=== PATIENT | male | born 1985 | race Caucasian/White ===

== ENCOUNTER 2019-03-18 02:38 | Emergency (ER) | payer OTHER ==
[~2019-03-18] VITALS: Ht 170.2 cm; Wt 68.0 kg
[2019-03-18] MEDS ORDERED: CARISOPRODOL 350MG TABLETS (02:50)
[2019-03-18] MEDS ORDERED: TRAMADOL 50MG TABLETS (02:50)
[2019-03-18] MEDS ORDERED: QUETIAPINE 25 MG (02:50)
[2019-03-18] MEDS ORDERED: ACETAMINOPHEN/CODEINE TABLET (02:50)
[2019-03-18] MEDS ORDERED: [UNRECOGNIZED DRUG - OTHER] (02:50)
[2019-03-18] MEDS ORDERED: ESCITALOPRAM 10MG TABLETS (02:50)
[2019-03-18] MEDS ORDERED: OXYCODONE/APAP 5-325 MG TABLET ONE ×2 (03:06→04:27)
--- NOTE | 2019-03-18 03:10 | NUR ---
Pt here for c/o chronic abd pain, state he has Hx of 3 abd hernias. State he had a mesh placed in abd but he believes he injuried himself in a fall causing severe pain hernia to pertrude. Percocet 5mg tabs x2 given, waiting for x-ray for abd series. Vs 82, 18, 98% on ra, 122/83.
[2019-03-18 03:12] LABS: EOSINOPHILS # (AUTO) 0.1 K/uL (0.0-0.7); EOSINOPHILS % (AUTO) 1.9 % (0.0-7.0); HEMATOCRIT 39.7 % (36.7-47.1); HEMOGLOBIN 14.1 g/dL (12.5-16.3); LYMPHOCYTES # (AUTO) 1.7 K/uL (20.0-40.0); LYMPHOCYTES % (AUTO) 34.6 % (20.5-51.5); MEAN CORPUSCULAR HEMOGLOBIN 31.7 uug (23.8-33.4); MEAN CORPUSCULAR HGB CONC 36 g/dL (32.5-36.3); MONOCYTES # (AUTO) 0.3 K/uL (2.0-10.0); MONOCYTES % (AUTO) 7.1 % (0.0-11.0); NEUTROPHILS # (AUTO) 2.7 K/uL (1.8-8.9); NEUTROPHILS % (AUTO) 55.4 % (38.5-71.5); PLATELET COUNT (AUTO) 218 K/uL (152-348); RED BLOOD CELL COUNT(AUTO) 4.46 MIL/uL (4.06-5.63); WHITE BLOOD COUNT (AUTO) 4.9 K/uL (3.6-10.2)
[2019-03-18] MEDS ORDERED: OXYCODONE/APAP 5-325 MG TABLET PO ONE ×2 (03:15→04:30)
[2019-03-18 03:24] LABS: BILIRUBIN,DIRECT 0.3 mg/dL (0.0-0.2); BILIRUBIN,TOTAL 1.9 mg/dL (0.2-1.0); CREATININE 1.1 mg/dL (0.6-1.3); POTASSIUM 3.7 mmol/L (3.5-5.1); TOTAL PROTEIN, SERUM 6.9 g/dL (6.4-8.2)
--- NOTE | 2019-03-18 03:29 | NUR ---
X-ray done waiting for MD.
--- NOTE | 2019-03-18 04:15 | NUR ---
Abd series complete, MD talking w/ pt at this time.
--- NOTE | 2019-03-18 04:30 | NUR ---
Medicated per MDO, pt d/c'd at this time
[2019-03-18 04:47] VITALS: BP 115/81
== END 2019-03-18 04:40 | disposition home or self-care (01) ==
LOC: ER 02:43
DX: G89.4 Chronic pain syndrome (principal); R10.84 Generalized abdominal pain; F11.20 Opioid dependence, uncomplicated; Z87.19 Personal history of other diseases of the digestive system; Z88.0 Allergy status to penicillin; Z79.899 Other long term (current) drug therapy
CPT/HCPCS: 36415; 71045; 74021; 83690; 85025; 85651; A4663

== ENCOUNTER 2019-03-21 06:40 | Inpatient (IN) | payer OTHER ==
[~2019-03-21] VITALS: Ht 167.6 cm; Wt 68.0 kg
[~2019-03-21 06:40] MED LIST: ACETAMINOPHEN/CODEINE TABLET; CARISOPRODOL 350MG TABLETS; ESCITALOPRAM 10MG TABLETS; QUETIAPINE 25 MG; TRAMADOL 50MG TABLETS; [UNRECOGNIZED DRUG - OTHER]
--- NOTE | 2019-03-21 07:15 | NUR ---
Dr Howell at the bedside for MSE.
[2019-03-21] MEDS ORDERED: OXYCODONE/APAP 5-325 MG TABLET PO ONE (07:30)
[2019-03-21] MEDS ORDERED: OXYCODONE/APAP 5-325 MG TABLET ONE (07:31)
[2019-03-21] MEDS ORDERED: ONDANSETRON 4 MG/2 ML VIAL IM ONE (09:15)
[2019-03-21] MEDS ORDERED: MORPHINE SULFATE 4 MG/1 ML DISP.SYRIN IM ONE (09:15)
[2019-03-21] MEDS ORDERED: IOHEXOL 300MG/ML 100 ML INFUS..BTL ONE (09:28)
[2019-03-21] MEDS ORDERED: IV NORMAL SALINE 250 ML IV ONE (09:28)
[2019-03-21] MEDS ORDERED: SWABABLE VALVE TRANSFER SET EA MC ONE (09:28)
[2019-03-21] MEDS ORDERED: IV NORMAL SALINE 1000 ML BAG IV ONE (09:30)
[2019-03-21] MEDS ORDERED: ONDANSETRON 4 MG/2 ML VIAL IV ONE (09:30)
[2019-03-21] MEDS ORDERED: MORPHINE SULFATE 4 MG/1 ML DISP.SYRIN IV ONE ×2 (09:30→11:45)
[2019-03-21 09:35] LABS: BASOPHILS # (AUTO) 0.1 K/uL (0.0-8.0); BASOPHILS % (AUTO) 0.7 % (0.0-2.0); EOSINOPHILS % (AUTO) 0.1 % (0.0-7.0); HEMATOCRIT 40.3 % (36.7-47.1); HEMOGLOBIN 14.2 g/dL (12.5-16.3); LYMPHOCYTES # (AUTO) 1.8 K/uL (20.0-40.0); LYMPHOCYTES % (AUTO) 23.9 % (20.5-51.5); MEAN CORPUSCULAR HEMOGLOBIN 31.4 uug (23.8-33.4); MEAN CORPUSCULAR HGB CONC 35 g/dL (32.5-36.3); MEAN CORPUSCULAR VOLUME 89.1 fL (73.0-96.2); MONOCYTES # (AUTO) 0.6 K/uL (2.0-10.0); MONOCYTES % (AUTO) 8.4 % (0.0-11.0); NEUTROPHILS % (AUTO) 66.9 % (38.5-71.5); PLATELET COUNT (AUTO) 239 K/uL (152-348); RED BLOOD CELL COUNT(AUTO) 4.52 MIL/uL (4.06-5.63)
--- NOTE | 2019-03-21 09:35 | NUR ---
Pt signed consent for IV contrasted CT. Placed in the chart.
[2019-03-21 09:39] LABS: WHITE BLOOD COUNT (AUTO) 7.5 K/uL (3.6-10.2)
[2019-03-21 09:40] LABS: POTASSIUM 3.4 mmol/L (3.5-5.1)
[2019-03-21 09:46] LABS: BILIRUBIN,DIRECT 0.3 mg/dL (0.0-0.2); BILIRUBIN,TOTAL 2.7 mg/dL (0.2-1.0); TOTAL PROTEIN, SERUM 7.2 g/dL (6.4-8.2)
--- NOTE | 2019-03-21 09:50 | NUR ---
Pt is out of ER for Ct.
--- NOTE | 2019-03-21 10:10 | NUR ---
Pt back from Ct, state decreased pain.
--- NOTE | 2019-03-21 10:23 | NUR ---
Patient is resting comfortably in bed with eyes closed, NAD.
[2019-03-21] MEDS ORDERED: MORPHINE SULFATE 4 MG/1 ML DISP.SYRIN ONE (11:56)
--- NOTE | 2019-03-21 12:15 | NUR ---
Pt resting in bed, speaking on the phone, NAD noted.
--- NOTE | 2019-03-21 13:28 | NUR ---
RECEIVED PATIENT FOR ADMISSION 33 YEARS OLD MALE BY W/CHAIR TO ROOM 227 PLACED IN BED FIXED AND MADE COMFORTABLE PATIENT IS ALERT AND ORIENTED ASSISTED WITH HIS ADMISSION PROTOCOL ON ROOM AIR WITH NO SHORTNESS OF BREATH AT THIS TIME LEFT FOREARM WITH HEPLOCK INTACT WITH NO S/S OF INFILTERATION AT THIS TIME MESSAGE LEFT FOR DR ELY RE ADMISSION ORDERS.
[2019-03-21 13:30] VITALS: BP 134/86
[2019-03-21] MEDS ORDERED: AMLO5TAB4 PO (14:18)
[2019-03-21] MEDS ORDERED: TRAM50TA PO (14:18)
[2019-03-21] MEDS ORDERED: [UNRECOGNIZED DRUG - OTHER] (14:18)
[2019-03-21] MEDS ORDERED: PROP80CA PO (14:18)
--- NOTE | 2019-03-21 14:51 | NUR ---
DR GOLDMAN HERE AWARE THAT PATIENT IS HERE AND ASKING FOR PAIN MEDICATIONS STATED OKAY WILL PUT IN ORDERS.
[2019-03-21] MEDS ORDERED: ZOLPIDEM 5 MG TABLET PO PRN (16:00)
[2019-03-21] MEDS ORDERED: ONDANSETRON 4 MG/2 ML VIAL IV PRN (16:00)
[2019-03-21] MEDS ORDERED: ACETAMINOPHEN 325 MG TABLET PO PRN (16:00)
[2019-03-21 16:02] VITALS: BP 123/78
[2019-03-21] MEDS: HYDROMORPHONE 1 MG/1 ML DISP.SYRIN IV PRN ×2 (16:21→19:57)
--- NOTE | 2019-03-21 19:45 | NUR ---
PER DR. QUEEN, PATIENT DOES NOT NEED EMERGENCY SURGERY. DR. GOLDMAN NOTIFIED.
[2019-03-21 20:00] VITALS: BP 132/77
--- NOTE | 2019-03-21 20:00 | NUR ---
PATIENT AWAKE IN BED. A/O X4. C/O PAIN IN ABDOMEN. PATIENT GIVEN DILAUDID 1MG IV PER ENVIRONMENTAL LEAD. VSS. H/L INTACT AND PATENT, NOTED TO LEFT FA #18 GAUGE. CALL LIGHT IN REACH. ALL NEEDS ATTENDED. WILL CONTINUE TO MONITOR AND ASSESS.
[2019-03-21] MEDS: PROPRANOLOL HCL 40 MG TABLET PO SCH (20:57)
[2019-03-21] MEDS ORDERED: DOCUSATE SODIUM 100 MG CAPSULE PO SCH (21:00)
[2019-03-21] MEDS ORDERED: DOCUSATE SODIUM 250 MG CAPSULE PO SCH (21:00)
[2019-03-22] MEDS: HYDROMORPHONE 1 MG/1 ML DISP.SYRIN IV PRN ×4 (00:12→19:04)
[2019-03-22 05:53] VITALS: BP 135/75
[2019-03-22] MEDS ORDERED: HYDROMORPHONE 2 MG/1 ML DISP.SYRIN IV PRN (06:24)
[2019-03-22 07:00] LABS: BASOPHILS % (AUTO) 0.7 % (0.0-2.0); EOSINOPHILS % (AUTO) 0.9 % (0.0-7.0); HEMATOCRIT 40.5 % (36.7-47.1); LYMPHOCYTES # (AUTO) 2.4 K/uL (20.0-40.0); LYMPHOCYTES % (AUTO) 46.5 % (20.5-51.5); MEAN CORPUSCULAR HEMOGLOBIN 31.1 uug (23.8-33.4); MEAN CORPUSCULAR HGB CONC 35 g/dL (32.5-36.3); MEAN CORPUSCULAR VOLUME 89.7 fL (73.0-96.2); MONOCYTES # (AUTO) 0.4 K/uL (2.0-10.0); MONOCYTES % (AUTO) 7.6 % (0.0-11.0); NEUTROPHILS # (AUTO) 2.2 K/uL (1.8-8.9); NEUTROPHILS % (AUTO) 44.3 % (38.5-71.5); PLATELET COUNT (AUTO) 199 K/uL (152-348); RED BLOOD CELL COUNT(AUTO) 4.51 MIL/uL (4.06-5.63)
[2019-03-22] MEDS ORDERED: PANTOPRAZOLE SODIUM 40 MG TABLET.DR PO SCH (07:00)
--- NOTE | 2019-03-22 07:30 | NUR ---
RECEIVED PATIENT IN BED DOSING ON AND OFF PATIENT HAD RECEIVED PAIN MEDICATIONS EARLIER AND IS COMFORTABLE AT THIS TIME REMAIN ON ROOM AIR WITH NO SHORTNESS OF BREATH HL REMAINS INTACT PATIENT WAS SEEN BY DR MELO ROMO AND SHE REMINDED THE PATIENT TO FOLLOW UP WITH THE SURGEON THAT DID HIS SURGERY AFTER DISCHARGE AND HE EXPRESSED UNDERSTANDING.
[2019-03-22 07:42] LABS: BILIRUBIN,TOTAL 2.2 mg/dL (0.2-1.0); CREATININE 0.9 mg/dL (0.6-1.3); MAGNESIUM 1.8 mg/dL (1.8-2.4); PHOSPHOROUS 4.2 mg/dL (2.5-4.9); POTASSIUM 4.1 mmol/L (3.5-5.1); TOTAL PROTEIN, SERUM 6.1 g/dL (6.4-8.2)
[2019-03-22] MEDS: PROPRANOLOL HCL 40 MG TABLET PO SCH (08:48)
[2019-03-22] MEDS ORDERED: PROPRANOLOL LA 80 MG CAP.SA.24H PO SCH (09:00)
[2019-03-22] MEDS ORDERED: AMLODIPINE 5 MG TABLET PO SCH (09:00)
[2019-03-22 11:18] VITALS: BP 108/71
--- NOTE | 2019-03-22 11:25 | NUR ---
D/C PLANNING PATIENT WILL BE DISCHARGED TODAY PER THE SALES REPRESENTATIVE [employer] AWAITING FOR ORDERS. PAIN MEDICATIONS ORDERED AND HELPFUL PATIENT AWARE OF PENDING DISCHARGE STATED HAS ALREADY CALLED DR TELLEZ OFFICE AND WILL BE SEEING HIM THIS AFTERNOON FOR APPOINTMENT.
--- NOTE | 2019-03-22 12:00 | NUR ---
HEART RATE AT THIS TIME IS 47 PATIENT IS ON PROPRANOLOL AND DID RECEIVE A DOSE TODAY POONAM ROMO NOTIFIED WITH NO NEW ORDERS AT THIS TIME PATIENT IS ASSYMPTOMATIC WILL CONTINUE TO OBSERVE
[2019-03-22] MEDS ORDERED: ACET-1467 PO (13:36)
[2019-03-22] MEDS ORDERED: CARI350T27 PO (13:37)
[2019-03-22] MEDS ORDERED: PENT100C9 PO (13:38)
[2019-03-22] MEDS ORDERED: ESCI10TA PO (13:39)
[2019-03-22] MEDS ORDERED: QUET25TA PO (13:40)
--- NOTE | 2019-03-22 13:53 | NUR ---
CAT LEVIN NP STATED THAT SHE SPOKE WITH THE PATIENTS OUTSIDE SURGEON AND THAT SHE WAS WAITING FOR DR DR QUEEN TO COMPLETE AND CONCLUDE THE DISCHARGE.
--- NOTE | 2019-03-22 14:02 | NUR ---
PATIENT IS SITTING AT THE EDGE OF THE BED IN HIS ROOM AND STATED TO ME THAT HE WAS NOT LEAVING BECAUSE HE IS IN A LOT OF PAIN WANTS A SECOND OPINION FROM ANOTHER SURGEON WANTS MORE PAIN MEDICATIONS CALLED AND NOTIFIED POONAM WITH NO NEW ORDERS AT THIS TIME
[2019-03-22 16:00] VITALS: BP 130/88
--- NOTE | 2019-03-22 16:45 | NUR ---
DISCHARGE ORDER NOTED PATIENT AWARE AND STATED THAT HIS MOTHER OMAR WILL BE HERE THIS EVENING TO PICK HIM UP.
--- NOTE | 2019-03-22 17:00 | NUR ---
DISCHARGE INSTRUCTIONS GIVEN TO PATIENT INCLUDING INSTRUCTION THAT HE HAS AN APPOINTMENT WITH DR MCCABE ON THE March AT 215 PM AND TO RETURN TO ANY EMERGENCY ROOM FOR WORSENING PAIN OR FEVER AND HE EXPRESSED UNDERSTANDING.
--- NOTE | 2019-03-22 19:50 | NUR ---
patient was picked up by his mother. Accompanied from the hospital by the RN. No distress noted. left the premises at 1950.
== END 2019-03-22 19:50 | disposition home or self-care (01) | DRG 251 ==
LOC: ER 06:40 → MEDSURG3 12:54
PROVIDERS: ADMIT Internal Medicine; ATTEND Internal Medicine
DX: R10.31 Right lower quadrant pain (principal); K91.872 Postprocedural seroma of a digestive system organ or structure following a digestive system procedure; E87.6 Hypokalemia; Z80.0 Family history of malignant neoplasm of digestive organs; V43.52XS Car driver injured in collision with other type car in traffic accident, sequela; Z91.81 History of falling; Z87.11 Personal history of peptic ulcer disease; K21.9 Gastro-esophageal reflux disease without esophagitis; G89.29 Other chronic pain; Z79.891 Long term (current) use of opiate analgesic; F43.10 Post-traumatic stress disorder, unspecified; Z87.440 Personal history of urinary (tract) infections; Z87.19 Personal history of other diseases of the digestive system
CPT/HCPCS: 36415; 72193; 76705; 83735; 84100; 85025; A4663; G0378; J1170; J2270; J2405; J7030; J7050; J8499; Q9967

== ENCOUNTER 2019-03-24 16:22 | Emergency (ER) | payer OTHER ==
[~2019-03-24] VITALS: Ht 167.6 cm; Wt 68.0 kg
[~2019-03-24 16:22] MED LIST changes: +ACET-1467 PO; -ACETAMINOPHEN/CODEINE TABLET; +AMLO5TAB4 PO; +CARI350T27 PO; -CARISOPRODOL 350MG TABLETS; +ESCI10TA PO; -ESCITALOPRAM 10MG TABLETS; +PENT100C9 PO; +PROP80CA PO; +QUET25TA PO; -QUETIAPINE 25 MG; +TRAM50TA PO; -TRAMADOL 50MG TABLETS; -[UNRECOGNIZED DRUG - OTHER]
--- NOTE | 2019-03-24 16:32 | NUR ---
Dr Bender at the bedside for MSE.
[2019-03-24 16:48] LABS: *BILIRUBIN,URIN NEGATIVE (NEGATIVE); *BLOOD, URINE NEGATIVE (NEGATIVE); *CLARITY,URINE SLIGHTLY CLOUDY (CLEAR); *COLOR,URINE YELLOW (YELLOW); *KETONES,URINE NEGATIVE (NEGATIVE); LEUKOCYTE ESTERASE ,URINE NEGATIVE (NEGATIVE); NITRITE, URINE NEGATIVE (NEGATIVE); UGLUCOSE NEGATIVE (NEGATIVE)
[2019-03-24 16:52] LABS: POTASSIUM 4.3 mmol/L (3.5-5.1)
[2019-03-24 16:56] LABS: BASOPHILS % (AUTO) 0.4 % (0.0-2.0); EOSINOPHILS % (AUTO) 0.1 % (0.0-7.0); HEMATOCRIT 43.4 % (36.7-47.1); HEMOGLOBIN 15.1 g/dL (12.5-16.3); LYMPHOCYTES # (AUTO) 1.6 K/uL (20.0-40.0); LYMPHOCYTES % (AUTO) 26.6 % (20.5-51.5); MEAN CORPUSCULAR HEMOGLOBIN 30.9 uug (23.8-33.4); MEAN CORPUSCULAR HGB CONC 35 g/dL (32.5-36.3); MONOCYTES # (AUTO) 0.4 K/uL (2.0-10.0); MONOCYTES % (AUTO) 6.8 % (0.0-11.0); NEUTROPHILS % (AUTO) 66.1 % (38.5-71.5); PLATELET COUNT (AUTO) 257 K/uL (152-348); RED BLOOD CELL COUNT(AUTO) 4.88 MIL/uL (4.06-5.63)
[2019-03-24 17:04] LABS: BILIRUBIN,DIRECT 0.3 mg/dL (0.0-0.2); BILIRUBIN,TOTAL 2.1 mg/dL (0.2-1.0); TOTAL PROTEIN, SERUM 7.6 g/dL (6.4-8.2)
[2019-03-24 17:04] LABS: MUCUS,URINE MANY /LPF (0-FEW); URINE AMORPHOUS PHOSPHATES MODERATE /HPF; WBC,URINE 0-3 /HPF (0-3)
[2019-03-24] MEDS ORDERED: PROCHLORPERAZINE EDISYLATE 10 MG/2 ML VIAL ONE (17:08)
[2019-03-24] MEDS ORDERED: ONDANSETRON ODT 4 MG TAB.RAPDIS ONE (17:11)
[2019-03-24] MEDS ORDERED: PROCHLORPERAZINE EDISYLATE 10 MG/2 ML VIAL IM ONE (17:15)
--- NOTE | 2019-03-24 17:15 | NUR ---
Patient eloped from facility. ER physician notified.
[2019-03-24] MEDS ORDERED: ONDANSETRON ODT 4 MG TAB.RAPDIS SL ONE (17:30)
== END 2019-03-24 17:19 | disposition left against medical advice (07) ==
LOC: ER 16:22
DX: R10.9 Unspecified abdominal pain (principal); R11.10 Vomiting, unspecified; K21.9 Gastro-esophageal reflux disease without esophagitis; Z88.0 Allergy status to penicillin; Z79.899 Other long term (current) drug therapy
CPT/HCPCS: 36415; 83690; 85025; A4663; J0780; Q0162

== ENCOUNTER 2019-07-14 04:38 | Emergency (ER) | payer OTHER ==
[~2019-07-14] VITALS: Ht 167.6 cm; Wt 68.0 kg
[2019-07-14] MEDS ORDERED: OXYCODONE/APAP 5-325 MG TABLET PO ONE ×2 (05:15→07:00)
[2019-07-14] MEDS ORDERED: ONDANSETRON ODT 4 MG TAB.RAPDIS SL ONE (05:15)
[2019-07-14 05:35] LABS: CREATININE 0.9 mg/dL (0.6-1.3); POTASSIUM 4.1 mmol/L (3.5-5.1)
--- NOTE | 2019-07-14 05:35 | NUR ---
GUERO ROMERO AT BEDSIDE FOR SANNA ABLE TO PROVIDE URINE SAMPLE ABLE TO TOLERATE PO MEDS ORDERED
[2019-07-14] MEDS ORDERED: ONDANSETRON ODT 4 MG TAB.RAPDIS ONE (05:36)
[2019-07-14] MEDS ORDERED: OXYCODONE/APAP 5-325 MG TABLET ONE ×2 (05:36→07:06)
[2019-07-14 05:41] LABS: BILIRUBIN,DIRECT 0.3 mg/dL (0.0-0.2); BILIRUBIN,TOTAL 2.2 mg/dL (0.2-1.0); TOTAL PROTEIN, SERUM 7.6 g/dL (6.4-8.2)
[2019-07-14 05:46] LABS: EOSINOPHILS # (AUTO) 0.1 K/uL (0.0-0.7); MONOCYTES # (AUTO) 0.4 K/uL (2.0-10.0)
[2019-07-14 05:51] LABS: BASOPHILS % (AUTO) 0.7 % (0.0-2.0); EOSINOPHILS % (AUTO) 1.7 % (0.0-7.0); HEMATOCRIT 40.9 % (36.7-47.1); HEMOGLOBIN 14.3 g/dL (12.5-16.3); LYMPHOCYTES # (AUTO) 1.8 K/uL (20.0-40.0); LYMPHOCYTES % (AUTO) 33.3 % (20.5-51.5); MEAN CORPUSCULAR HEMOGLOBIN 31.9 uug (23.8-33.4); MEAN CORPUSCULAR HGB CONC 35 g/dL (32.5-36.3); MEAN CORPUSCULAR VOLUME 91.4 fL (73.0-96.2); MONOCYTES % (AUTO) 7.6 % (0.0-11.0); NEUTROPHILS % (AUTO) 56.7 % (38.5-71.5); PLATELET COUNT (AUTO) 246 K/uL (152-348); RED BLOOD CELL COUNT(AUTO) 4.47 MIL/uL (4.06-5.63); WHITE BLOOD COUNT (AUTO) 5.3 K/uL (3.6-10.2)
[2019-07-14 05:53] LABS: *BILIRUBIN,URIN NEGATIVE (NEGATIVE); *BLOOD, URINE NEGATIVE (NEGATIVE); *CLARITY,URINE CLEAR (CLEAR); *COLOR,URINE YELLOW (YELLOW); *KETONES,URINE NEGATIVE (NEGATIVE); *UROBILINOGEN,URINE 0.2 E.U./dl (NORMAL); LEUKOCYTE ESTERASE ,URINE NEGATIVE (NEGATIVE); NITRITE, URINE NEGATIVE (NEGATIVE); UGLUCOSE NEGATIVE (NEGATIVE)
--- NOTE | 2019-07-14 06:01 | NUR ---
PT TRANSPORTED VIA WHEELCHAIR ACCOMPANIED BY WINDOW DRAPER FOR CT
--- NOTE | 2019-07-14 06:29 | NUR ---
PT BACK FROM CT VIA WHEELCHAIR ACCOMPANIED BY TECH
--- NOTE | 2019-07-14 07:17 | NUR ---
HAND OFF AND SBAR GIVEN TO INCOMING DAY SHIFT RN PT NAD, WAITING FOR REQUESTED WORK NOTE FROM DOCTOR, TO BE EXCUSED FOR 5DAYS AMBULATORY WITH STABLE GAIT.
--- NOTE | 2019-07-14 07:23 | NUR ---
Patient discharged to home in stable conditon. Written and verbal after care instructions given. Patient verbalizes understanding of instructions.
[2019-07-14 07:24] VITALS: BP 133/63
== END 2019-07-14 07:25 | disposition home or self-care (01) ==
LOC: ER 04:40
DX: S13.4XXA Sprain of ligaments of cervical spine, initial encounter (principal); S39.91XA Unspecified injury of abdomen, initial encounter; I10 Essential (primary) hypertension; K21.9 Gastro-esophageal reflux disease without esophagitis; Z88.0 Allergy status to penicillin; Z79.899 Other long term (current) drug therapy; V49.9XXA Car occupant (driver) (passenger) injured in unspecified traffic accident, initial encounter; Y93.89 Activity, other specified; Y92.89 Other specified places as the place of occurrence of the external cause; Y99.8 Other external cause status
CPT/HCPCS: 36415; 76870; 83690; 85025; A4663; Q0162

== ENCOUNTER 2019-12-08 18:01 | Emergency (ER) | payer OTHER ==
[~2019-12-08] VITALS: Ht 167.6 cm; Wt 70.3 kg
[~2019-12-08 18:01] MED LIST changes: -PROP80CA PO; +PROP80CA51 PO
--- NOTE | 2019-12-08 18:10 | NUR ---
PT IS A/OX4, PRESENTS TO THE ER C/O ABD PAIN THAT BEGAN LAST NIGHT. ABD PAIN IS NON-PROVOKED, CRAMPING IN QUALITY, DOES NOT RADIATE, 4/10, CONSTANT. PT IS NOTED WALKING INTO THE ER W/ PAGAN'S BURGER, [place], AND [place] IN HAND AND EATING. VSS. NO ACUTE DISTRESS NOTED AT THIS TIME. PT DENIES C/P, SOB, N/V/D, DIZZINESS, HEADACHE.
[2019-12-08] MEDS ORDERED: IV NORMAL SALINE 1000 ML BAG IV ONE (18:30)
--- NOTE | 2019-12-08 18:34 | NUR ---
SYLVIA BO AT BEDSIDE FOR MSE.
[2019-12-08 18:51] LABS: BASOPHILS % (AUTO) 0.8 % (0.0-2.0); EOSINOPHILS # (AUTO) 0.2 K/uL (0.0-0.7); EOSINOPHILS % (AUTO) 3.2 % (0.0-7.0); HEMATOCRIT 41.6 % (36.7-47.1); HEMOGLOBIN 14.6 g/dL (12.5-16.3); LYMPHOCYTES # (AUTO) 1.6 K/uL (20.0-40.0); LYMPHOCYTES % (AUTO) 25.8 % (20.5-51.5); MEAN CORPUSCULAR HEMOGLOBIN 31.4 uug (23.8-33.4); MEAN CORPUSCULAR HGB CONC 35 g/dL (32.5-36.3); MEAN CORPUSCULAR VOLUME 89.7 fL (73.0-96.2); MONOCYTES # (AUTO) 0.3 K/uL (2.0-10.0); MONOCYTES % (AUTO) 5.2 % (0.0-11.0); PLATELET COUNT (AUTO) 225 K/uL (152-348); RED BLOOD CELL COUNT(AUTO) 4.64 MIL/uL (4.06-5.63); WHITE BLOOD COUNT (AUTO) 6.2 K/uL (3.6-10.2)
--- NOTE | 2019-12-08 18:59 | NUR ---
SHIFT REPORT GIVEN TO JANNETH Parkinson RN. PT RESTING COMFORTABLY IN BED,NAD. NS INFUSING VIA 18G RAC.
[2019-12-08 19:00] LABS: *BILIRUBIN,URIN NEGATIVE (NEGATIVE); *BLOOD, URINE NEGATIVE (NEGATIVE); *CLARITY,URINE CLEAR (CLEAR); *COLOR,URINE YELLOW (YELLOW); *KETONES,URINE NEGATIVE (NEGATIVE); *UROBILINOGEN,URINE 0.2 E.U./dl (NORMAL); LEUKOCYTE ESTERASE ,URINE NEGATIVE (NEGATIVE); NITRITE, URINE NEGATIVE (NEGATIVE); UGLUCOSE NEGATIVE (NEGATIVE)
[2019-12-08] MEDS ORDERED: LIDOCAINE VISCUS 2% 15 ML UDC MM ONE (19:00)
[2019-12-08] MEDS ORDERED: MAG HYDROX/AL HYDROX/SIMETH 30 ML LIQUID UDC PO ONE (19:00)
[2019-12-08] MEDS ORDERED: DICYCLOMINE HCL LIQ 10 MG/5 ML UDC PO ONE (19:00)
[2019-12-08 19:06] LABS: BILIRUBIN,DIRECT 0.4 mg/dL (0.0-0.2); POTASSIUM 3.6 mmol/L (3.5-5.1); TOTAL PROTEIN, SERUM 7.4 g/dL (6.4-8.2)
[2019-12-08] MEDS ORDERED: LIDOCAINE VISCUS 2% 15 ML UDC ONE (19:14)
[2019-12-08] MEDS ORDERED: MAG HYDROX/AL HYDROX/SIMETH 30 ML LIQUID UDC ONE (19:14)
[2019-12-08] MEDS ORDERED: ONDANSETRON ODT 4 MG TAB.RAPDIS ONE (19:14)
[2019-12-08] MEDS ORDERED: DICYCLOMINE HCL LIQ 10 MG/5 ML UDC ONE (19:14)
[2019-12-08] MEDS ORDERED: ONDANSETRON ODT 4 MG TAB.RAPDIS SL ONE (19:15)
[2019-12-08 19:17] LABS: *AMPHETAMINE, URINE NEGATIVE (NEGATIVE); *BARBITURATE, URINE NEGATIVE (NEGATIVE); *CANNABINOID, URINE POSITIVE (NEGATIVE); *COCCAINE, URINE NEGATIVE (NEGATIVE); *OPIATE, URINE NEGATIVE (NEGATIVE); *PHENCYCLIDINE SCREEN,URINE NEGATIVE (NEGATIVE)
--- NOTE | 2019-12-08 20:01 | NUR ---
IV removed. Catheter intact and site benign. Pressure and 4x4 gauze applied to site. No bleeding noted. Patient discharged to home in stable conditon. Written and verbal after care instructions given. Patient verbalizes understanding of instructions. patient ambulating with steady gait.
[2019-12-08 20:03] VITALS: BP 129/83
== END 2019-12-08 20:01 | disposition home or self-care (01) ==
LOC: ER 18:03
DX: E80.6 Other disorders of bilirubin metabolism (principal); I10 Essential (primary) hypertension; K21.9 Gastro-esophageal reflux disease without esophagitis; Z88.0 Allergy status to penicillin; Z90.49 Acquired absence of other specified parts of digestive tract; Z79.899 Other long term (current) drug therapy
CPT/HCPCS: 36415; 74021; 80307; 83690; 85025; A4663; J7030; Q0162

== ENCOUNTER 2020-06-13 16:50 | Emergency (ER) | payer OTHER ==
[~2020-06-13] VITALS: Ht 167.6 cm; Wt 68.0 kg
[2020-06-13] MEDS ORDERED: IBUPROFEN 600 MG TABLET PO ONE (17:00)
--- NOTE | 2020-06-13 17:04 | NUR ---
Pt is in room #1b. dr Guzman evaluated the pt.
[2020-06-13] MEDS ORDERED: IBUPROFEN 600 MG TABLET ONE (17:13)
--- NOTE | 2020-06-13 17:51 | NUR ---
PT DECIDED TO LEAVE [facility] ER AMA. DR WALTON EXPLAINED ALL RISKS OF LEAVING HOSPITAL ER AMA TO THE PT. PT VERBALIZED FULL UNDERSTANDING. PT REFUSED TO SIGN AMA FORM. PT LEFT HOSPITAL BY CAR WITH HIS FRIEND.
[2020-06-13 17:53] VITALS: BP 136/72
== END 2020-06-13 17:54 | disposition left against medical advice (07) ==
LOC: ER 16:55
DX: S99.911A Unspecified injury of right ankle, initial encounter (principal); X50.1XXA Overexertion from prolonged static or awkward postures, initial encounter; Y92.89 Other specified places as the place of occurrence of the external cause; Z88.0 Allergy status to penicillin; Z87.898 Personal history of other specified conditions; I10 Essential (primary) hypertension; Z79.899 Other long term (current) drug therapy; K21.9 Gastro-esophageal reflux disease without esophagitis; M51.9 Unspecified thoracic, thoracolumbar and lumbosacral intervertebral disc disorder
CPT/HCPCS: 73610; A4663

== ENCOUNTER 2020-11-24 20:53 | Emergency (ER) | payer OTHER ==
[~2020-11-24] VITALS: Ht 167.6 cm; Wt 68.0 kg
--- NOTE | 2020-11-24 21:30 | NUR ---
Dr. Cruz at bedside for MSE.
[2020-11-24] MEDS ORDERED: LORAZEPAM 0.5 MG TABLET PO ONE ×2 (21:45→23:00)
[2020-11-24] MEDS ORDERED: LORAZEPAM 1 MG TABLET ONE ×2 (21:53→22:55)
--- NOTE | 2020-11-24 22:10 | NUR ---
Pt out of ER for CT.
--- NOTE | 2020-11-24 22:33 | NUR ---
Pt back to ER from CT.
[2020-11-24 22:53] VITALS: BP 140/85
--- NOTE | 2020-11-24 22:53 | NUR ---
Patient discharged to home in stable condition. Written and verbal after care instructions given. Patient verbalizes understanding of instructions. Stressed follow up or return to ER for worsening s/s. Patient out of ER with steady gait, no acute signs of distress, VSS, all belongings taken, provided with copies of CT results.
== END 2020-11-24 22:54 | disposition home or self-care (01) ==
LOC: ER 20:57
DX: S13.9XXA Sprain of joints and ligaments of unspecified parts of neck, initial encounter (principal); V49.9XXA Car occupant (driver) (passenger) injured in unspecified traffic accident, initial encounter; Y92.410 Unspecified street and highway as the place of occurrence of the external cause; R20.2 Paresthesia of skin; G44.209 Tension-type headache, unspecified, not intractable; G89.4 Chronic pain syndrome; M54.9 Dorsalgia, unspecified; Z79.891 Long term (current) use of opiate analgesic; I10 Essential (primary) hypertension; K21.9 Gastro-esophageal reflux disease without esophagitis; Z87.11 Personal history of peptic ulcer disease; Z88.0 Allergy status to penicillin; Z79.899 Other long term (current) drug therapy
CPT/HCPCS: 72125; A4663

== ENCOUNTER 2021-06-30 08:05 | Emergency (ER) | payer OTHER ==
[~2021-06-30] VITALS: Ht 167.6 cm; Wt 63.5 kg
--- NOTE | 2021-06-30 08:30 | NUR ---
Dr Thompson at the bedside for MSE.
[2021-06-30] MEDS ORDERED: MAG HYDROX/AL HYDROX/SIMETH 30 ML LIQUID UDC ONE (08:43)
[2021-06-30] MEDS ORDERED: ONDANSETRON ODT 4 MG TAB.RAPDIS ONE (08:43)
[2021-06-30] MEDS ORDERED: LIDOCAINE VISCUS 2% 15 ML UDC ONE (08:43)
[2021-06-30] MEDS ORDERED: LIDOCAINE VISCUS 2% 15 ML UDC MM ONE (08:45)
[2021-06-30] MEDS ORDERED: MAG HYDROX/AL HYDROX/SIMETH 30 ML LIQUID UDC PO ONE (08:45)
[2021-06-30] MEDS ORDERED: ONDANSETRON ODT 4 MG TAB.RAPDIS SL ONE (08:45)
[2021-06-30 08:48] LABS: HEMATOCRIT 44.8 % (36.7-47.1); MEAN CORPUSCULAR HEMOGLOBIN 31.3 uug (23.8-33.4); MEAN CORPUSCULAR VOLUME 89.1 fL (73.0-96.2); PLATELET COUNT (AUTO) 281 K/uL (152-348)
[2021-06-30 09:06] LABS: CREATININE 1.1 mg/dL (0.6-1.3); POTASSIUM 3.7 mmol/L (3.5-5.1)
[2021-06-30 09:12] LABS: BILIRUBIN,DIRECT 0.4 mg/dL (0.0-0.2); BILIRUBIN,TOTAL 2.8 mg/dL (0.2-1.0); TOTAL PROTEIN, SERUM 7.8 g/dL (6.4-8.2)
[2021-06-30] MEDS ORDERED: LORAZEPAM 0.5 MG TABLET PO ONE ×2 (09:15→09:45)
--- NOTE | 2021-06-30 09:20 | NUR ---
Patient is resting comfortably in bed with eyes closed, NAD noted.
[2021-06-30] MEDS ORDERED: ONDA4TAB11 PO (09:32)
[2021-06-30 09:42] VITALS: BP 155/78
[2021-06-30] MEDS ORDERED: LORAZEPAM 1 MG TABLET ONE (09:42)
--- NOTE | 2021-06-30 09:43 | NUR ---
Patient discharged to home in stable condition. Written and verbal after care instructions given. Patient verbalizes understanding of instructions. Stressed follow up or return to ER for worsening s/s. pt left ER W/ steady gait.
== END 2021-06-30 09:43 | disposition home or self-care (01) ==
LOC: ER 08:05
DX: R11.2 Nausea with vomiting, unspecified (principal); R10.13 Epigastric pain; Z87.11 Personal history of peptic ulcer disease; K21.9 Gastro-esophageal reflux disease without esophagitis; Z88.0 Allergy status to penicillin; G89.4 Chronic pain syndrome; Z79.891 Long term (current) use of opiate analgesic; I10 Essential (primary) hypertension
CPT/HCPCS: 36415; 83690; 85025; A4663; Q0162

== ENCOUNTER 2021-08-09 19:11 | Emergency (ER) | payer OTHER ==
[~2021-08-09] VITALS: Ht 167.6 cm; Wt 68.0 kg
[~2021-08-09 19:11] MED LIST changes: +ONDA4TAB11 PO
--- NOTE | 2021-08-09 20:48 | NUR ---
Dr. Cruz at bedside for MSE.
[2021-08-09] MEDS ORDERED: HYDROCODONE/APAP 10-325 MG TABLET PO ONE ×2 (21:00→22:00)
[2021-08-09] MEDS ORDERED: ALPRAZOLAM 0.25 MG TABLET PO ONE (21:00)
[2021-08-09] MEDS ORDERED: HYDROCODONE/APAP 10-325 MG TABLET ONE ×2 (21:06→21:56)
[2021-08-09] MEDS ORDERED: ALPRAZOLAM 0.25 MG TABLET ONE (21:07)
[2021-08-09] MEDS ORDERED: ALPR1TAB2 PO (21:32)
[2021-08-09] MEDS ORDERED: HYDR-3980 PO (21:32)
--- NOTE | 2021-08-09 21:50 | NUR ---
Patient discharged to home in stable condition. Written and verbal after care instructions given. Patient verbalizes understanding of instructions. Stressed follow up or return to ER for worsening s/s. Patient out of ER with crutches, gait training provided, no falls noted, no acute signs of distress, VSS, all belongings taken, instructed not to drive, to be driven home by girlfriend via private vehicle.
[2021-08-09 21:52] VITALS: BP 134/87
== END 2021-08-09 21:52 | disposition home or self-care (01) ==
LOC: ER 19:12
DX: S93.402A Sprain of unspecified ligament of left ankle, initial encounter (principal); W18.40XA Slipping, tripping and stumbling without falling, unspecified, initial encounter; Y92.89 Other specified places as the place of occurrence of the external cause; G89.4 Chronic pain syndrome; F43.12 Post-traumatic stress disorder, chronic; F13.20 Sedative, hypnotic or anxiolytic dependence, uncomplicated; Z79.891 Long term (current) use of opiate analgesic; F41.9 Anxiety disorder, unspecified; Z88.0 Allergy status to penicillin; K21.9 Gastro-esophageal reflux disease without esophagitis; I10 Essential (primary) hypertension; Z87.11 Personal history of peptic ulcer disease; Z79.899 Other long term (current) drug therapy
CPT/HCPCS: 73610; A4663

== ENCOUNTER 2021-08-16 19:39 | Emergency (ER) | payer OTHER ==
[~2021-08-16 19:39] MED LIST changes: +ALPR1TAB2 PO; +HYDR-3980 PO
--- NOTE | 2021-08-16 19:55 | NUR ---
Pt was being triaged but decided to leave after being told by MD he is not getting narcotic medications.
== END 2021-08-16 19:56 | disposition left against medical advice (07) ==
LOC: ER 19:40
DX: Z53.21 Procedure and treatment not carried out due to patient leaving prior to being seen by health care provider (principal)

== ENCOUNTER 2022-05-04 04:23 | Emergency (ER) | payer OTHER ==
[~2022-05-04] VITALS: Ht 167.6 cm; Wt 77.1 kg
[2022-05-04] MEDS ORDERED: HYDROMORPHONE 2 MG/1 ML DISP.SYRIN ONE (04:53)
[2022-05-04] MEDS ORDERED: SILVER SULFADIAZINE 1% CREAM 50 GM TP ONE ×2 (04:54→05:00)
[2022-05-04] MEDS ORDERED: ONDANSETRON ODT 4 MG TAB.RAPDIS ONE (04:54)
[2022-05-04] MEDS ORDERED: ONDANSETRON ODT 4 MG TAB.RAPDIS SL ONE (05:00)
[2022-05-04] MEDS ORDERED: HYDROMORPHONE 1 MG/1 ML DISP.SYRIN IM ONE (05:00)
[2022-05-04] MEDS ORDERED: ALPR1TAB2 PO (05:03)
[2022-05-04] MEDS ORDERED: OXYC-133 PO (05:03)
[2022-05-04] MEDS ORDERED: ALPRAZOLAM 0.5 MG TABLET ONE (05:28)
[2022-05-04] MEDS ORDERED: ALPRAZOLAM 0.25 MG TABLET PO ONE (05:30)
[2022-05-04 05:33] VITALS: BP 113/79
--- NOTE | 2022-05-04 05:33 | NUR ---
Patient discharged to home in stable condition. Written and verbal after care instructions given. Patient verbalizes understanding of instructions. Stressed follow up or return to ER for worsening s/s. pt ambulated with steady gait. denies pain. AOx4.
== END 2022-05-04 05:35 | disposition home or self-care (01) ==
LOC: ER 04:26
DX: T23.002A Burn of unspecified degree of left hand, unspecified site, initial encounter (principal); T23.001A Burn of unspecified degree of right hand, unspecified site, initial encounter; S20.219A Contusion of unspecified front wall of thorax, initial encounter; S80.811A Abrasion, right lower leg, initial encounter; S80.212A Abrasion, left knee, initial encounter; V23.4XXA Motorcycle driver injured in collision with car, pick-up truck or van in traffic accident, initial encounter; Y92.414 Local residential or business street as the place of occurrence of the external cause; G89.4 Chronic pain syndrome; F13.20 Sedative, hypnotic or anxiolytic dependence, uncomplicated; K21.9 Gastro-esophageal reflux disease without esophagitis; I10 Essential (primary) hypertension; Z88.0 Allergy status to penicillin; Z79.899 Other long term (current) drug therapy
CPT/HCPCS: 16000; 71045; 96372; 99284; J1170; A4663; Q0162

== ENCOUNTER 2022-09-22 19:12 | Emergency (ER) | payer OTHER ==
[~2022-09-22] VITALS: Ht 167.6 cm; Wt 68.0 kg
[~2022-09-22 19:12] MED LIST changes: +OXYC-133 PO
--- NOTE | 2022-09-22 19:35 | NUR ---
Dr Hoyt at bedside. MSE in progress
--- NOTE | 2022-09-22 19:36 | NUR ---
Dr. Hoyt at bedside. MSE in progress.
[2022-09-22] MEDS ORDERED: LIDOCAINE HCL 1% 20 ML VIAL IJ ONE (19:45)
[2022-09-22] MEDS ORDERED: LIDOCAINE HCL 1% 20 ML VIAL ONE ×2 (19:47→20:07)
[2022-09-22] MEDS ORDERED: KETOROLAC TROMETHAMINE 60 MG INJ IM ONE ×2 (19:57→20:00)
[2022-09-22] MEDS ORDERED: ALPRAZOLAM 0.25 MG TABLET ONE (19:58)
[2022-09-22] MEDS ORDERED: ALPRAZOLAM 0.25 MG TABLET PO ONE (20:00)
[2022-09-22] MEDS ORDERED: CEFTRIAXONE 500 MG VIAL IM ONE (20:00)
[2022-09-22] MEDS ORDERED: CEFTRIAXONE 500 MG VIAL ONE (20:06)
[2022-09-22] MEDS ORDERED: MORPHINE SULFATE 4 MG/1 ML DISP.SYRIN IV ONE (20:45)
[2022-09-22] MEDS ORDERED: MORPHINE SULFATE 4 MG/1 ML DISP.SYRIN ONE (21:07)
--- NOTE | 2022-09-22 21:50 | NUR ---
Patient does not wish to proceed with medical care recommended by Dr. Hoyt. Patient given information related to possible complications, up to and including , which could occur as a result of leaving the hospital at this time. Patient verbalizes understanding of risks involved due to leaving against medical advice. Patient refused to sign AMA form. He wants to be transferred to [facility] for a second opinion. Patient became verbally aggressive with Dr. Hoyt. But, he left without any altercation with physician and security.
[2022-09-22 21:58] VITALS: BP 147/85
== END 2022-09-22 21:55 | disposition left against medical advice (07) ==
LOC: ER 19:15
DX: S61.012A Laceration without foreign body of left thumb without damage to nail, initial encounter (principal); W26.0XXA Contact with knife, initial encounter; Y93.G1 Activity, food preparation and clean up; Y92.89 Other specified places as the place of occurrence of the external cause; Z53.29 Procedure and treatment not carried out because of patient's decision for other reasons; Z88.0 Allergy status to penicillin; I10 Essential (primary) hypertension; G89.4 Chronic pain syndrome; K21.9 Gastro-esophageal reflux disease without esophagitis; Z79.899 Other long term (current) drug therapy
CPT/HCPCS: 99284; 96374; 73130; 96372; J1885; J3490; J2270; A4663; J0696